=== PATIENT | female | born 2000 | race Caucasian/White ===

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

== ENCOUNTER 2019-08-30 20:21 | Emergency (ER) | payer OTHER ==
[~2019-08-30] VITALS: Ht 160 cm; Wt 140.0 kg
--- OUTSIDE RECORDS SUMMARY | 2019-08-30 20:24 | XMS ---
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 Jacqueline has no Care Guidelines for this patient. [facility] MO[facility] NOTE: Visits indicate total known visits. ED/C VISIT TRACKING (12 MO.) [facility]2019 [facility] COMPLAINT: - OVERDOSE 08/12/2019 10:46 [facility] [place] TYPE: Emergency COMPLAINT: - POSS OD INPATIENT VISIT TRACKING (12 MO.) 08/12/2019 10:47 [facility] [place] TYPE: Observation COMPLAINT: - HEROIN OD DIAGNOSES: - Other psychoactive substance abuse, uncomplicated - Tobacco use - Poisoning by heroin, accidental (unintentional), init encntr - Altered mental status, unspecified [email or web address]
== END 2019-08-30 22:55 | disposition home or self-care (01) ==
LOC: ED 20:21
DX: T40.1X1A Poisoning by heroin, accidental (unintentional), initial encounter (principal); F17.200 Nicotine dependence, unspecified, uncomplicated
CPT/HCPCS: 99284